=== PATIENT | female | born 2000 | race Caucasian/White ===

== ENCOUNTER 2019-03-10 05:11 | Inpatient (IN) | payer BC, OTHER ==
[2019-03-10 05:39] VITALS: BMI 26.3
[2019-03-10] MEDS ORDERED: hydrALAZINE 20 MG/ML VIAL SLOW IVP PRN ×2 (06:29→10:33)
--- NOTE | 2019-03-10 06:31 | PDOC.LDHP ---
Labor and Delivery H&P HPI: Patient of Ani Mckinley CC: CTX at full term HPI: 18 yo G1 at 39 weeks 1 day here with CTX. Was 2 cm in office yesterday and still is 2cm now. No VB, no LOF, no MUNIZ, no other issues. Review of Systems: complete ROS performed and as per HPI Current gestational age (weeks): 39 (1 day) Dating criteria: last menstrual period Grav: 1 Current complications: none Abnormal US findings: No Current medications: pre-randi vitamins Previous surgical history: none Allergies/Adverse Reactions: Allergies Allergy/AdvReac Type Severity Reaction Status Date / Time No Known Allergies Allergy Verified 03/10/19 05:36 - Physical Exam Vital signs reviewed and normal: yes (121/69 88 98.4) General: NAD Heart: RRR Lungs: CTAB Abdomen: gravid Extremeties: no edema FHT: category 1 [place] contractions every: every 3-5 - Vaginal Exam cm dilated: 2 Effacement: 50% Station: -1 - Assessment Full term patient in latent labor - Plan Plan: observation in L&D (We will obs for 2 hrs and continue labor obs. BPs ok.)
[2019-03-10] MEDS ORDERED: Lidocaine 2% MPF 10 ML AMP (For Epidural Use) ONE (09:00)
[2019-03-10] MEDS ORDERED: Sodium Chloride 0.9% (PF) 10 ML VIAL ONE (10:00)
[2019-03-10] MEDS ORDERED: Bupivacaine 0.25% HCL 30 ML VIAL ONE ×2 (10:00→20:50)
[2019-03-10] MEDS ORDERED: Butorphanol Tartrate 1 MG/ML VIAL SLOW IVP PRN (10:33)
[2019-03-10] MEDS ORDERED: Ondansetron PF 4 MG/2 ML Vial IVP PRN (10:33)
[2019-03-10] MEDS ORDERED: HYDROcodone/Acetaminophen 5/325 mg Tablet PO PRN (10:33)
[2019-03-10] MEDS ORDERED: Ibuprofen 800 MG TAB PO PRN (10:33)
[2019-03-10] MEDS ORDERED: Lidocaine 1% (PF) 30 ML VIAL SC PRN (10:33)
[2019-03-10] MEDS ORDERED: Lactated Ringer's 1,000 ML IV SCH (10:45)
[2019-03-10] MEDS: Lactated Ringer's 1,000 ML IV SCH ×3 (11:07→21:33)
[2019-03-10 11:50] LABS: Hemoglobin 10.8 g/dL (12.0-16.0); Mean Corpuscular HGB CONC 33.9 g/dL (32.0-36.0); Mean Corpuscular Hemoglobin 29.7 pg (25.0-35.0); Mean Corpuscular Volume 87.6 fL (78.0-98.0); Mean Platelet Volume 7.3 fL (7.4-10.4); Platelet Count 298 thou/uL (130-400); RBC Distribution Width 11.8 % (11.5-14.5); Red Blood Cell (RBC) Count 3.65 mill/uL (4.00-5.20); White Blood Cell (WBC) Count 21.1 thou/uL (4.8-10.8)
[2019-03-10 12:15] LABS: HBSAg Index 0.26 S/CO (0-0.99); Hep B Surf Ag Non-Reactive S/CO (NonReactive)
[2019-03-10 12:16] LABS: Syphilis Antibody Nonreactive (Nonreactive); Syphilis Antibody Index 0.02 S/CO (<1.00 Non-Reactive)
[2019-03-10] MEDS ORDERED: Fentanyl 4 mcg/Bup 0.1% Cadd 100 ML ONE ×2 (12:37→20:17)
[2019-03-10] MEDS ORDERED: NS w/ Oxytocin 10 units 500 ML IV SCH (16:00)
[2019-03-10] MEDS ORDERED: Fentanyl 100 MCG/2 ML VIAL ONE (20:50)
[2019-03-10] MEDS: NS / Oxytocin 40 units/1000ml 1,000 ML IV PRN (23:55)
--- NOTE | 2019-03-10 23:57 | PDOC.OPDEL ---
OB Operative/Delivery Note Delivery Dr/Surgeon: Light Pre-Delivery Diagnosis: active labor Procedure/Post Delivery Dx: spontaneous vaginal delivery Weeks gestation: 39 Anesthesia: epidural - Findings A Sex: male Weight: 7 lb 7 oz - 1 min: 7 - 5 min: 9 - Additional Findings/Plan Placenta delivered: spontaneous Repaired Obstetrical Laceration: none Estimated blood loss: 200mL Post delivery plan: routine recovery
[2019-03-11] MEDS ORDERED: Methylergonovine 0.2 MG/ML VIAL IM PRN (01:40)
[2019-03-11] MEDS ORDERED: Milk Of Magnesia 30 ML UDCUP PO PRN (01:40)
[2019-03-11] MEDS ORDERED: Bisacodyl 10 MG SUPP PR PRN (01:40)
[2019-03-11] MEDS ORDERED: HYDROcodone/Acetaminophen 5/325 mg Tablet PO PRN ×2 (01:40)
[2019-03-11] MEDS ORDERED: Ondansetron PF 4 MG/2 ML Vial IVP PRN (01:40)
[2019-03-11] MEDS ORDERED: hydrALAZINE 20 MG/ML VIAL SLOW IVP PRN (01:40)
[2019-03-11] MEDS ORDERED: NS / Oxytocin 40 units/1000ml 1,000 ML IV SCH (01:40)
[2019-03-11] MEDS ORDERED: Misoprostol 200 MCG TAB VAG PRN (01:40)
[2019-03-11] MEDS: NS / Oxytocin 40 units/1000ml 1,000 ML IV PRN (01:40)
[2019-03-11] MEDS ORDERED: Benzocaine-Menthol 82.5 ML CAN TOP PRN (01:40)
[2019-03-11] MEDS: Ibuprofen 800 MG TAB PO SCH ×3 (06:23→21:10)
[2019-03-11 06:53] LABS: #Eosinphils 0.1 thou/uL (0.0-0.7); #Lymphocytes 2.7 thou/uL (1.20-3.40); #Monocytes 1.7 thou/uL (0.11-0.59); #Neutrophils 14.7 thou/uL (1.40-6.50); %Basophils 0.1 % (0.0-1.0); %Eosinophils 0.4 % (0.0-10.0); %Lymphocytes 14.1 % (28.0-48.0); %Monocytes 8.6 % (0.0-4.0); %Neutrophils 76.7 % (31.0-61.0); Hemoglobin 9.5 g/dL (12.0-16.0); Mean Corpuscular HGB CONC 33.8 g/dL (32.0-36.0); Mean Corpuscular Volume 88.8 fL (78.0-98.0); Platelet Count 239 thou/uL (130-400); RBC Distribution Width 11.9 % (11.5-14.5); Red Blood Cell (RBC) Count 3.16 mill/uL (4.00-5.20); White Blood Cell (WBC) Count 19.1 thou/uL (4.8-10.8)
[2019-03-11] MEDS ORDERED: Adacel (T-DAP) 0.5 ML SYRINGE IM ONE (09:00)
[2019-03-11] MEDS: Ferrous Sulfate 325 MG TAB PO SCH ×2 (09:16→17:11)
[2019-03-11] MEDS: Prenatal Vitamin 1 TAB PO SCH (09:16)
[2019-03-11] MEDS: Docusate Calcium (SURFAK) 240 MG CAP PO SCH ×2 (09:17→21:10)
[2019-03-11] MEDS ORDERED: Measles/Mumps/Rubella 10 MCG/0.5 ML VIAL SC ONE (10:00)
--- NOTE | 2019-03-11 22:11 | PDOC.PP ---
Post Progress Note Post Day #: 1 Subjective: Pt is doing well. Infant is eating ok. Patient is very sleepy PO intake tolerated: yes Flatus: yes Ambulation: yes Vital Signs (12 hours) Temp Pulse Resp BP 03/11/19 16:33 97.8 F 95 20 117/67 03/11/19 11:31 98.0 F 95 20 105/56 L Weight Weight 168 lb - Physical Examination General: NAD Cardiovascular: no m/r/g, RRR Respiratory: clear to auscultation bilaterally Abdominal: + bowel sounds, lochia (minimal) Fundus firm & at: +1 Extremities: negative homans (B) Perineum: edematous Psychiatric: A&Ox3, normal affect Result Diagrams: 03/11/19 06:28 Additional Labs: Post Labs Blood Type B POSITIVE 03/10/19 13:15 Hep Bs Antigen Non-Reactive S/CO (NonReactive) 03/10/19 11:15 (1) (spontaneous vaginal delivery) Code(s): O80 - ENCOUNTER FOR FULL-TERM UNCOMPLICATED DELIVERY Status: Acute - Assessment/Plan A: G1 now P1 sp at 39 weeks wnml nml ppd #! exam with exception of edema in labia and perineum P: routine care. Discharge home tomorrow
[2019-03-11 23:37] VITALS: TEMP 98.5
[2019-03-12] MEDS: Ibuprofen 800 MG TAB PO SCH ×2 (05:47→13:48)
[2019-03-12 07:47] VITALS: BP 109/64
[2019-03-12] MEDS: Ferrous Sulfate 325 MG TAB PO SCH (09:43)
[2019-03-12] MEDS: Prenatal Vitamin 1 TAB PO SCH (09:43)
[2019-03-12] MEDS: Docusate Calcium (SURFAK) 240 MG CAP PO SCH (09:43)
== END 2019-03-12 14:11 | disposition home or self-care (01) | DRG 807 ==
LOC: L&D/OP 05:11 → L&D 10:32 → 3SW 03-11 02:09
PROVIDERS: ADMIT Obstetrics & Gynecology; ATTEND Obstetrics & Gynecology
PROC: 10E0XZZ Delivery of Products of Conception, External Approach (ICD-10-PCS; principal; 2019-03-10)
DX: O80 Encounter for full-term uncomplicated delivery (principal); Z37.0 Single live birth; Z3A.39 39 weeks gestation of pregnancy
CPT/HCPCS: 36415; 51702; 85025; 85027; 86780; 86850; 86900; 86901; 87340; 90707; 99285; J2001; J2590; J3010; S0020